=== PATIENT | female | born 1955 | race Two or more races ===

== ENCOUNTER → 2020-02-14 08:34 | Outpatient (CLI) | payer OTHER | END | disposition home or self-care (01) | LOC: LAB 08:34 | PROVIDERS: ATTEND Internal Medicine | DX: I11.9 Hypertensive heart disease without heart failure (principal); E78.2 Mixed hyperlipidemia; E03.8 Other specified hypothyroidism ==

== ENCOUNTER 2020-03-19 07:10 | Outpatient (CLI) | payer OTHER | END 2020-03-19 07:12 | disposition home or self-care (01) | LOC: NUCLEAR 07:10 | PROVIDERS: ATTEND Internal Medicine | DX: I25.89 Other forms of chronic ischemic heart disease (principal) | CPT/HCPCS: 78452; 93018; A9500; J0153 ==